=== PATIENT | female | born 1970 | race American Indian/Alaskan Native ===

== ENCOUNTER 2018-08-12 17:20 | Emergency (ER) | payer OTHER ==
--- NOTE | 2018-08-12 17:27 | Emergency Department Report ---
Blank Doc - Documentation Documentation: This is a 48-year-old female that slipped and fell and now has left knee, left hand, left arm, and lower back. Denies any head injuries or neck pains. This initial assessment/diagnostic orders/clinical plan/treatment(s) is/are subject to change based on patient's health status, clinical progression and re- assessment by fellow clinical providers in the ED. Further treatment and workup at subsequent clinical providers discretion. Patient/guardians urged not to elope from the ED as their condition may be serious if not clinically assessed and managed. Initial orders include: 1- Patient sent to MAIN ED for further evaluation and treatment 2- xrays
--- NOTE | 2018-08-12 19:25 | Emergency Department Report ---
ED Fall HPI - General Chief Complaint: Fall Stated Complaint: FALL Time Seen by Provider: 08/12/18 17:25 Source: patient Mode of arrival: Ambulatory - History of Present Illness Initial Comments: Pt is a 48 yo female who presents to the ED with c/o a slip and fall at work that occurred on 07/31. She states she tripped over a light fixture. she states she has pain in her left knee, left side of her back, and left hand. she denies any numbness or weakness. she has been ambulatory since then incident. she has a PMHx of HTN and takes lisinopril and amolodipine and states she did not take either one today. she denies any allergies to medications. - Related Data Previous Rx's Medication Instructions Recorded Last Taken Type Lisinopril [Zestril TAB] 10 mg PO QDAY #30 tablet 09/15/15 Unknown Rx Meclizine [Antivert] 25 mg PO Q8H PRN #20 tablet 09/15/15 Unknown Rx Ondansetron [Zofran TAB] 4 mg PO Q8HR PRN #20 tablet 09/15/15 Unknown Rx amLODIPine [Norvasc] 10 mg PO QDAY #30 tablet 09/15/15 Unknown Rx Cyclobenzaprine [Flexeril] 10 mg PO QHS PRN #7 tablet 08/12/18 Unknown Rx Ibuprofen [Motrin 600 MG tab] 600 mg PO Q8H PRN #14 tablet 08/12/18 Unknown Rx Allergies Allergy/AdvReac Type Severity Reaction Status Date / Time No Known Allergies Allergy Verified 08/12/18 17:22 ED Review of Systems ROS: Stated complaint: FALL Other details as noted in HPI Comment: All other systems reviewed and negative ED Past Medical Hx - Past Medical History Hx Hypertension: Yes Hx Congestive Heart Failure: No Hx Diabetes: No Hx Asthma: No Hx COPD: No - Surgical History Additional Surgical History: Tubal Ligation - Social History Smoking Status: Never Smoker Substance Use Type: None - Medications Home Medications: Home Medications Medication Instructions Recorded Confirmed Last Taken Type Lisinopril [Zestril TAB] 10 mg PO QDAY #30 tablet 09/15/15 Unknown Rx Meclizine [Antivert] 25 mg PO Q8H PRN #20 tablet 09/15/15 Unknown Rx Ondansetron [Zofran TAB] 4 mg PO Q8HR PRN #20 tablet 09/15/15 Unknown Rx amLODIPine [Norvasc] 10 mg PO QDAY #30 tablet 09/15/15 Unknown Rx Cyclobenzaprine [Flexeril] 10 mg PO QHS PRN #7 tablet 08/12/18 Unknown Rx Ibuprofen [Motrin 600 MG tab] 600 mg PO Q8H PRN #14 tablet 08/12/18 Unknown Rx ED Physical Exam - General Limitations: No Limitations General appearance: alert, in no apparent distress - Head Head exam: Present: atraumatic, normocephalic - Eye Eye exam: Present: normal appearance, PERRL - ENT ENT exam: Present: mucous membranes moist - Neck Neck exam: Present: normal inspection. Absent: tenderness, full ROM - Respiratory Respiratory exam: Present: normal lung sounds bilaterally. Absent: respiratory distress, wheezes, rales, rhonchi, stridor, chest wall tenderness, accessory muscle use, decreased breath sounds, prolonged expiratory - Cardiovascular Cardiovascular Exam: Present: regular rate, normal rhythm, normal heart sounds. Absent: systolic murmur, diastolic murmur, rubs, gallop - Extremities Exam Extremities exam: Present: other (mild diffuse discomfort to palpation over the dorsum of the left hand, FROM of the bilateral fingers, wrists, elbows, shoulders with no difficulty, no TTP over the left knee, FROM of the left knee, neurovascularly intact throughout) - Back Exam Back exam: Present: normal inspection, full ROM, paraspinal tenderness (very mild left sided lumbar paraspinal muscular tenderness to palpation, no midline C-spine, T-spine, or L-spine tenderness, no step offs, no deformities). Absent: vertebral tenderness - Neurological Exam Neurological exam: Present: alert, oriented X3, CN II-XII intact, normal gait, other (5/5 strength in the BUE/BLE, normal finger to nose, normal heel to rivera, sensation intact). Absent: motor sensory deficit - Psychiatric Psychiatric exam: Present: normal affect, normal mood - Skin Skin exam: Present: warm, dry, intact ED Course Vital Signs 08/12/18 08/12/18 17:25 20:14 Temperature 98.3 F Pulse Rate 76 57 L Respiratory 16 20 Rate Blood Pressure 143/105 Blood Pressure 134/94 [Right] O2 Sat by Pulse 100 100 Oximetry ED Medical Decision Making - Radiology Data Radiology results: report reviewed PROCEDURE: XR TIBIA FIBULA 2V LT TECHNIQUE: AP and lateral views of the left tibia and fibula HISTORY: Left tibia and fibular pain s/p fall COMPARISONS: None . FINDINGS: There is no evidence for acute fracture or dislocation. No soft tissue swelling or radiopaque foreign bodies are seen. Bony mineralization is normal and joint spaces are maintained. IMPRESSION: No acute bony or soft tissue abnormality noted. This document is electronically signed by Michelle Lowry MD., August 12 2018 07:2 5:13 PM ET Transcribed By: [facility] Dictated By: MICHELLE LOWRY MD Electronically Authenticated By: MICHELLE LOWRY MD Signed Date/Time: 08/12/181925 PROCEDURE: XR HAND 2V LT TECHNIQUE: AP and lateral views of the left hand HISTORY: Left hand pain s/p fall COMPARISONS: None . FINDINGS: There is no evidence for acute fracture or dislocation. No soft tissue swelling or radiopaque foreign bodies are seen. Bony mineralization is normal and joint spaces are maintained. IMPRESSION: No acute bony or soft tissue abnormality noted. This document is electronically signed by Michelle Lowry MD., August 12 2018 07:28:12 PM ET Transcribed By: [facility] Dictated By: MICHELLE LOWRY MD Electronically Authenticated By: MICHELLE LOWRY MD Signed Date/Time: 08/12/181928 PROCEDURE: XR SPINE LUMBOSACRAL 2-3V TECHNIQUE: Lumbar spine radiographs, AP, lateral, and coned-down views. HISTORY: Low back pain s/p fall COMPARISONS: None . FINDINGS: Alignment: Normal . Vertebral body heights/Disk spaces: Normal . Fracture(s): None . Facets: Degenerative changes from L4 through S1 are noted bilaterally . Bone mineralization: Normal . IMPRESSION: No acute abnormality. Facet joint degenerative changes from L4 through S1 bilaterally. This document is electronically signed by Michelle Lowry MD., August 12 2018 07:26:39 PM ET Transcribed By: [facility] Dictated By: MICHELLE LOWRY MD Electronically Authenticated By: MICHELLE LOWRY MD Signed Date/Time: 08/12/181927 PROCEDURE: XR KNEE 3V LT TECHNIQUE: 3 views left knee HISTORY: pain s/p fall COMPARISONS: None FINDINGS: Normal bony mineralization. Mild medial joint space narrowing. No definite fracture or dislocation. Fibular head on the oblique image appears to have a lucent cleft which is not seen on the additional images. Correlate with region of pain. No suprapatellar bursal effusion. IMPRESSION: Mild medial compartment osteoarthritis left knee. Questionable fibular head fracture seen on one image only. Correlate with region of pain as this finding can be subtle on plain film.. This document is electronically signed by Jaimie Hooker MD., August 12 2018 07:51:25 PM ET Transcribed By: [facility] Dictated By: JAIMIE HOOKER Electronically Authenticated By: JAIMIE HOOKER Signed Date/Time: 08/12/181952 - Medical Decision Making Pt is a 48 yo female who presents to the ED with c/o a slip and fall at work that occurred on 07/31. She states she tripped over a light fixture. she states she has pain in her left knee, left side of her back, and left hand. she denies any numbness or weakness. she has been ambulatory since then incident. she has a PMHx of HTN and takes lisinopril and amolodipine and states she did not take either one today. she denies any allergies to medications. XRs ordered in triage prior to my assessment. no deformities on exam, no neuro deficits, no midline spinal tenderness. XR of the left tib fib shows No acute bony or soft tissue abnormality noted. XR left hand No acute bony or soft tissue abnormality noted. XR lumbar spine No acute abnormality. Facet joint degenerative changes from L4 through S1 bilaterally. XR left knee Mild medial compartment osteoarthritis left knee. Questionable fibular head fracture seen on one image only. Correlate with region of pain as this finding can be subtle on plain film. pt does not have TTP over this area and is ambulatory without difficulty. discussed to please follow up with a primary care doctor in the next 2-3 days for reevaluation. please take your blood pressure medication as prescribed by your primary care doctor. take anti-inflammatory medication as prescribed as needed. do not drive or operate heavy machinery while taking muscle relaxer. may use ice, rest, heat, epsom salt bath. return to the emergency room for any new or worsening symptoms. Critical care attestation.: If time is entered above; I have spent that time in minutes in the direct care of this critically ill patient, excluding procedure time. ED Disposition Clinical Impression: Left hand pain Fall Qualifiers: Encounter type: initial encounter Qualified Code(s): W19.XXXA - Unspecified fall, initial encounter Left knee pain Qualifiers: Chronicity: acute Qualified Code(s): M25.562 - Pain in left knee Low back pain Qualifiers: Chronicity: acute Back pain laterality: left Sciatica presence: without sciatica Qualified Code(s): M54.5 - Low back pain Disposition: TO HOME OR SELFCARE Is pt being admited?: No Does the pt Need Aspirin: No Condition: Stable Instructions: Muscle Strain (ED), Arthralgia (ED) Additional Instructions: Please follow up with a primary care doctor in the next 2-3 days. please take your blood pressure medication as prescribed by your primary care doctor. take medication as prescribed as needed. do not drive or operate heavy machinery while taking muscle relaxer. may use ice, rest, heat, epsom salt bath. return to the emergency room for any new or worsening symptoms. Prescriptions: Cyclobenzaprine [Flexeril] 10 mg PO QHS PRN #7 tablet PRN Reason: Muscle Spasm Ibuprofen [Motrin 600 MG tab] 600 mg PO Q8H PRN #14 tablet PRN Reason: Pain Referrals: RACHAEL WEINSTEIN MD [Primary Care Provider] - 2-3 Days Time of Disposition: 20:07 Print Language: SERBIAN
--- NOTE | 2018-08-12 19:28 | XRay Report ---
PROCEDURE: XR SPINE LUMBOSACRAL 2-3V TECHNIQUE: Lumbar spine radiographs, AP, lateral, and coned-down views. HISTORY: Low back pain s/p fall COMPARISONS: None . FINDINGS: Alignment: Normal . Vertebral body heights/Disk spaces: Normal . Fracture(s): None . Facets: Degenerative changes from L4 through S1 are noted bilaterally . Bone mineralization: Normal . IMPRESSION: No acute abnormality. Facet joint degenerative changes from L4 through S1 bilaterally. This document is electronically signed by Michelle Lowry MD., August 12 2018 07:26:39 PM ET
--- NOTE | 2018-08-12 19:29 | XRay Report ---
PROCEDURE: XR HAND 2V LT TECHNIQUE: AP and lateral views of the left hand HISTORY: Left hand pain s/p fall COMPARISONS: None . FINDINGS: There is no evidence for acute fracture or dislocation. No soft tissue swelling or radiopaque foreign bodies are seen. Bony mineralization is normal and joint spaces are maintained. IMPRESSION: No acute bony or soft tissue abnormality noted. This document is electronically signed by Michelle Lowry MD., August 12 2018 07:28:12 PM ET
--- NOTE | 2018-08-12 19:53 | XRay Report ---
PROCEDURE: XR KNEE 3V LT TECHNIQUE: 3 views left knee HISTORY: pain s/p fall COMPARISONS: None FINDINGS: Normal bony mineralization. Mild medial joint space narrowing. No definite fracture or dislocation. Fibular head on the oblique image appears to have a lucent cleft which is not seen on the additional images. Correlate with region of pain. No suprapatellar bursal effusion. IMPRESSION: Mild medial compartment osteoarthritis left knee. Questionable fibular head fracture seen on one image only. Correlate with region of pain as this find ing can be subtle on plain film.. This document is electronically signed by Jaimie Hooker MD., August 12 2018 07:51:25 PM ET
[2018-08-12 20:16] VITALS: BP 134/94
== END 2018-08-12 20:16 | disposition home or self-care (01) ==
LOC: ED 17:20
DX: M54.5 Low back pain (principal); M25.562 Pain in left knee; M79.642 Pain in left hand; I10 Essential (primary) hypertension; Z98.51 Tubal ligation status; W01.0XXA Fall on same level from slipping, tripping and stumbling without subsequent striking against object, initial encounter; Y93.89 Activity, other specified; Y92.89 Other specified places as the place of occurrence of the external cause; Y99.8 Other external cause status
CPT/HCPCS: 72100

== ENCOUNTER 2018-08-15 01:38 | Emergency (ER) | payer OTHER ==
[2018-08-15 01:54] VITALS: BP 159/99
--- NOTE | 2018-08-15 03:21 | Emergency Department Report ---
ED Upper Extremity Inj HPI - General Chief Complaint: Extremity Injury, Upper Stated Complaint: L RING FINGER INJURY Time Seen by Provider: 08/15/18 03:19 Source: patient Mode of arrival: Ambulatory Limitations: No Limitations - History of Present Illness Initial Comments: 48-year-old -[place] female presents to the emergency room stating that her left fourth finger has been reinjured. Patient states that she was seen at [place] urgent [facility] for fracture of her left fourth finger on 07/31/2018. Patient was seen here on August 12 with negative x-rays of her hand as well as today concern for reinjury. Complaint: Injury to:: left, finger (4th) Other Extremity Injury: Fingers: Left (4th) Other Injuries: none Improves With: immobilization Context: injury Associated Symptoms: denies other symptoms Treatments Prior to Arrival: splint - Related Data Previous Rx's Medication Instructions Recorded Last Taken Type Lisinopril [Zestril TAB] 10 mg PO QDAY #30 tablet 09/15/15 Unknown Rx Meclizine [Antivert] 25 mg PO Q8H PRN #20 tablet 09/15/15 Unknown Rx Ondansetron [Zofran TAB] 4 mg PO Q8HR PRN #20 tablet 09/15/15 Unknown Rx amLODIPine [Norvasc] 10 mg PO QDAY #30 tablet 09/15/15 Unknown Rx Cyclobenzaprine [Flexeril] 10 mg PO QHS PRN #7 tablet 08/12/18 Unknown Rx Ibuprofen [Motrin 600 MG tab] 600 mg PO Q8H PRN #14 tablet 08/12/18 Unknown Rx Allergies Allergy/AdvReac Type Severity Reaction Status Date / Time No Known Allergies Allergy Verified 08/12/18 17:22 ED Review of Systems ROS: Stated complaint: L RING FINGER INJURY Other details as noted in HPI Comment: All other systems reviewed and negative Musculoskeletal: arthralgia (left hand) ED Past Medical Hx - Past Medical History Previous Medical History?: Yes Hx Hypertension: Yes Hx Congestive Heart Failure: No Hx Diabetes: No Hx Asthma: No Hx COPD: No Additional medical history: vertigo - Surgical History Past Surgical History?: Yes Additional Surgical History: Tubal Ligation - Social History Smoking Status: Former Smoker Substance Use Type: None - Medications Home Medications: Home Medications Medication Instructions Recorded Confirmed Last Taken Type Lisinopril [Zestril TAB] 10 mg PO QDAY #30 tablet 09/15/15 Unknown Rx Meclizine [Antivert] 25 mg PO Q8H PRN #20 tablet 09/15/15 Unknown Rx Ondansetron [Zofran TAB] 4 mg PO Q8HR PRN #20 tablet 09/15/15 Unknown Rx amLODIPine [Norvasc] 10 mg PO QDAY #30 tablet 09/15/15 Unknown Rx Cyclobenzaprine [Flexeril] 10 mg PO QHS PRN #7 tablet 08/12/18 Unknown Rx Ibuprofen [Motrin 600 MG tab] 600 mg PO Q8H PRN #14 tablet 08/12/18 Unknown Rx ED Physical Exam - General Limitations: No Limitations General appearance: alert, in no apparent distress - Head Head exam: Present: atraumatic, normocephalic - Eye Eye exam: Present: normal appearance - Expanded Upper Extremity Exam Left Shoulder Exam: Present: normal inspection, full ROM Upper Arm exam: Present: normal inspection, full ROM Elbow exam: Present: normal inspection, full ROM Forearm Wrist exam: Present: normal inspection, full ROM Hand Wrist exam: Present: full ROM, tenderness. Absent: swelling, deformity, erythema, amputation ED Course Vital Signs 08/15/18 01:44 Temperature 98 F Pulse Rate 82 Respiratory 18 Rate Blood Pressure 159/99 O2 Sat by Pulse 100 Oximetry ED Medical Decision Making - Radiology Data Radiology results: report reviewed Patient: JEFF SAUCEDO MR#: [id number] : 1970 Acct:[id number] Age/Sex: 48 / F ADM Date: 08/15/18 Loc: ED Attending Dr: Ordering Physician: MARGUERITE MEDINA DO Date of Service: 08/15/18 Procedure(s): XR hand 2V LT Accession Number(s): [id number] cc: MARGUERITE MEDINA DO Fluoro Time In Minutes: PROCEDURE: XR HAND 2V LT TECHNIQUE: 3 views of the left hand were obtained. HISTORY: S/P fall ring finger pain COMPARISONS: 08/12/2018 FINDINGS: There is no evidence of acute fracture or soft tissue injury. There is joint does not show any acute changes. IMPRESSION: No acute findings.. This document is electronically signed by Roselia Jackson MD., August 15 2018 03:17:04 AM ET Transcribed By: [facility] Dictated By: ROSELIA JACKSON MD Electronically Authenticated By: ROSELIA JACKSON MD Signed Date/Time: 08/15/18318 DD/ 5 TD/TT: 08/15/18206 - Medical Decision Making 48-year-old female comes in for reinjury of the left fourth finger. Splint was placed on patient's finger x-ray was negative for any acute fractures. Patient be discharged home to follow-up with the orthopedic provider. Critical care attestation.: If time is entered above; I have spent that time in minutes in the direct care of this critically ill patient, excluding procedure time. ED Disposition Clinical Impression: Left hand pain Disposition: DC-01 TO HOME OR SELFCARE Is pt being admited?: No Does the pt Need Aspirin: No Condition: Stable Instructions: Finger Sprain (ED) Additional Instructions: Follow-up with orthopedic provider if his fever continues to give you problems. Referrals: [facility] MD ALEX [Primary Care Provider] - 3-5 Days ROSELIA BLANC MD [Staff Physician] - 3-5 Days Forms: Work/School Release Form(ED)
== END 2018-08-15 04:00 | disposition home or self-care (01) ==
LOC: ED 01:38
DX: M79.642 Pain in left hand (principal)

== ENCOUNTER 2018-09-08 08:36 | Emergency (ER) | payer SELFPAY ==
[2018-09-08 08:43] VITALS: BP 151/104
== END 2018-09-08 09:15 | disposition left against medical advice (07) ==
LOC: ED 08:36
DX: M54.5 Low back pain (principal); G43.909 Migraine, unspecified, not intractable, without status migrainosus; Z53.21 Procedure and treatment not carried out due to patient leaving prior to being seen by health care provider